=== PATIENT | female | born 1950 | race Caucasian/White ===

== ENCOUNTER → 2023-02-26 07:43 | Outpatient (CLI) | payer MEDICARE, SELFPAY ==
--- NOTE | ~2023-02-26 | MR_ITS ---
MRI of the lumbar spine Clinical History: Radiculopathy Technique: Axial T2-weighted images, and sagittal T1-weighted, T2-weighted, and and T2 fat-sat images were acquired. Findings: No fracture identified. 3 mm retrolisthesis of L1 over L2 present. 7 mm anterolisthesis of L4 over L5 present. No suspicious bone marrow signal abnormality seen. At L1-L2, there is advanced degenerative disc narrowing. There is minimal disc bulge and moderate fac et arthropathy. No central canal stenosis. There is moderate bilateral neural foraminal narrowing. At L2-L3, there is disc bulge and severe facet arthropathy, with mild to moderate central canal steno sis focally. There is moderate to severe bilateral neural foraminal narrowing. L3-L4, disc bulge and facet arthropathy result in severe spinal canal stenosis/thecal sac compression . There is severe right neural foraminal narrowing, and moderate left neural foraminal narrowing. At L4-L5, disc bulge/uncovering and severe facet arthropathy result in severe spinal canal stenosis/t hecal sac compression. There is severe bilateral neural foraminal narrowing, right worse than left. At L5-S1, diffuse disc bulge and severe facet arthropathy are present, with right lateral recess sten osis. There is severe bilateral neural foraminal narrowing. Paravertebral soft tissues are unremarkable. Impression: Severe degenerative spondylosis at L3-L4 and L4-L5. Moderate to severe degenerative spondylosis at L1 -L2, L2-L3, and L5-S1. 3 mm retrolisthesis of L1 over L2. 7 mm anterolisthesis of L4 over L5. Reviewed, dictated and finalized at [facility]. Impression: Severe degenerative spondylosis at L3-L4 and L4-L5. Moderate to severe degenera tive spondylosis at L1-L2, L2-L3, and L5-S1. 3 mm retrolisthesis of L1 over L2. 7 mm anterolisthesis of L4 over L5.
== END ==
DX: M47.26 Other spondylosis with radiculopathy, lumbar region (principal); M43.16 Spondylolisthesis, lumbar region
CPT/HCPCS: 72148